=== PATIENT | female | born 1990 | race Caucasian/White ===

== ENCOUNTER 2019-05-22 20:19 | Emergency (ER) | payer OTHER ==
[2019-05-22 20:26] VITALS: BP 121/77; PULSE 88; TEMP 98.3; BMI 37.4
--- NOTE | 2019-05-22 20:29 | PDOC ---
Rapid Medical Evaluation Time Seen by Provider: 05/22/19 20:23 Medical Evaluation: 05/22/19 20:26 I have performed a brief in-person evaluation of this patient. The patient presents with a chief complaint of: + test at home, unsure how far along she is, p/w abd pain w/ vag itching and swelling to feet Pertinent physical exam findings:Stable and well sathya I have ordered the following:labs/US The patient will proceed to the ED for further evaluation. Discharge Disposition - Diagnosis Abdominal cramping - Referrals - Patient Instructions - Post Discharge Activity
--- NOTE | 2019-05-22 21:03 | PDOC ---
History of Present Illness - General Chief Complaint: Pain Stated Complaint: VAGINAL PAIN/ Time Seen by Provider: 05/22/19 20:23 History Source: Patient Exam Limitations: No Limitations - History of Present Illness Initial Comments: 28 yo obese F w a hx of childhood asthma and severe pre-eclampsia in her last presents to the ER with groin pain saying she thinks she is around 10 weeks bc she took an at home test but came into the ER today because she started feeling some right sided lower abdominal pain that she has never felt before. The patient states she also thinks she has a urinary tract infection because it lucero alot when she pees. The pain feels like a stabbing and squeezing in character and is rated 8/10 when it comes on. The pain is sometimes made worse when the patient moves from a sitting to standing position. The patient is not currently experiencing any pain. Occasionally she experiences nausea with the pain but denies emesis. The patient has not yet had an US to document an IUP for this bc she states her insurance doesn't schedule the first pre-dakota appointment until 10 weeks. She states she has been taking pre-dakota vitamins for the . Patient recently moved from [place] 2 months ago. - Patient endorses dysuria, frequency, and urgency. Patient takes 81 mg baby aspirin every day as recommended by her prior OB from [place] bc of her hx of severe pre-eclampsia. LMP: 03/27 PCP: None SECURITY ANALYST: None yet, getting a new one next week Social Hx: Denies current smoking, drinking, or other substance usage. Allergies: NKA, NKDA PSH: x2 Past History - Past Medical History Allergies/Adverse Reactions: Allergies Allergy/AdvReac Type Severity Reaction Status Date / Time No Known Allergies Allergy Verified 05/22/19 20:26 Home Medications: Ambulatory Orders Cephalexin Monohydrate [Keflex -] 500 mg PO BID 7 Days #14 capsule 05/22/19 Nystatin Cream [Mycostatin Cream -] 1 applic TP BID 7 Days #1 applic 05/22/19 COPD: No - Suicide/Smoking/Psychosocial Hx Smoking History: Never smoked Review of Systems - Review of Systems Able to Perform ROS?: Yes Comments:: CONSTITUTIONAL: Absent: fever, no chills, no fatigue EYES: Absent: visual changes ENT: Absent: ear pain, no sore throat CARDIOVASCULAR: Absent: chest pain, no palpitations RESPIRATORY: Absent: cough, no SOB GI: Present: Abdominal pain, nausea Absent: no vomiting, no constipation, no diarrhea GENITOURINARY: Present: dysuria, frequency, urgency Absent: no hematuria MUSKULOSKELETAL: Absent: back pain, no arthralgia, no myalgia SKIN: Absent: rash NEURO: Absent: headache *Physical Exam - Vital Signs Last Vital Signs Temp Pulse Resp BP Pulse Ox 98.3 F 88 18 121/77 98 05/22/19 20:24 05/22/19 20:24 05/22/19 20:24 05/22/19 20:24 05/22/19 20:24 - Physical Exam Comments: GENERAL: Well-appearing, well-nourished. No apparent distress. HEENT: Normocephalic, atraumatic. PERRL, EOM intact. CARDIOVASCULAR: Normal S1, S2. Regular rate and rhythm. PULMONARY: No evidence of respiratory distress. Lungs clear to auscultation bilaterally. No wheezing, rales or rhonchi. ABDOMEN: There is Suprapubic TTP as well as mild RLQ ttp. No guarding, rigidity, or rebound. EXTREMITIES: Normal ROM in all four extremities. No gross deformities. SKIN: Warm, dry. No rash NEUROLOGICAL: No focal neurological deficits. Female Pelvic Exam: positive: normal external exam, cervical os closed, normal adnexa, normal size ovaries, discharge (Whitish curd like lesions). negative: CMT, lesions, Bartholin mass, adnexal tenderness, vaginal bleeding ED Treatment Course - LABORATORY CBC & Chemistry Diagram: 05/22/19 20:58 05/22/19 20:58 Medical Decision Making - Medical Decision Making 28 yo obese F w a hx of childhood asthma and severe pre-eclampsia in her last presents to the ER with groin pain saying she thinks she is around 10 weeks bc she took an at home test but came into the ER today because she started feeling some right sided lower abdominal pain that she has never felt before. The patient states she also thinks she has a urinary tract infection because it lucero alot when she pees. The pain feels like a stabbing and squeezing in character and is rated 8/10 when it comes on. The pain is sometimes made worse when the patient moves from a sitting to standing position. The patient is not currently experiencing any pain. Occasionally she experiences nausea with the pain but denies emesis. The patient has not yet had an US to document an IUP for this bc she states her insurance doesn't schedule the first pre- appointment until 10 weeks. She states she has been taking pre-dakota vitamins for the . Patient recently moved from [place] 2 months ago. - Patient endorses dysuria, frequency, and urgency. Patient takes 81 mg baby aspirin every day as recommended by her prior OB from [place] bc of her hx of severe pre-eclampsia. LMP: 03/27 Vital Signs Temp Pulse Resp BP Pulse Ox 98.3 F 88 18 121/77 98 05/22/19 20:24 05/22/19 20:24 05/22/19 20:24 05/22/19 20:24 05/22/19 20:24 DDx IBNLT: - IUP vs ectopic, UTI/Pyelo, torsion, ovarian cyst, - inevitable vs threatened, electrolyte/metabolic disturbance Plan: Labs, urine, TVUS, re-assess. Urine shows mild UTI Pelvic exam shows candidal discharge TVUS: IUP, FHR - 161, approximately 7 weeks 2 days by CRL of 1.14 and a mean gestational sac diameter of 2.39 Will treat uti with keflex and nystatin cream Patient being given OB follow up *DC/Admit/Observation/Transfer Diagnosis at time of Disposition: Abdominal cramping, UTI (urinary tract infection), Ginette cystitis - Discharge Dispostion Disposition: HOME Condition at time of disposition: Stable Decision to Admit order: No - Prescriptions Prescriptions: Cephalexin Monohydrate [Keflex -] 500 mg PO BID 7 Days #14 capsule Nystatin Cream [Mycostatin Cream -] 1 applic TP BID 7 Days #1 applic - Referrals Referrals: [facility] [Provider Group] Ann Moser MD [Staff Physician] - - Patient Instructions Printed Discharge Instructions: Weight Gain During Additional Instructions: You came into the ER with abdominal pain and burning when you pee. We looked at your urine and found that you have a urinary tract infection. We have sent two medications to your pharmacy for you to go and pic up. Please take as instructed on the bottles. Please make sure to follow up with an OB doctor this week regarding your results. Come back to the ER immediately if your pain worsens, you get a fever, start vomiting, or have any other new or worsening concerns. Thank you for coming to the [facility]. We hope you feel better soon! Print Language: CITIZEN OF [place] - Post Discharge Activity
[2019-05-22 21:04] LABS: BASO % 0.9 % (0-2.0); EOS % 1.9 % (0-4.5); HEMATOCRIT 40.9 % (32.4-45.2); HEMOGLOBIN 13.4 GM/dL (10.7-15.3); LYMPH % 28.3 % (8-40); MCH 27.3 pg (25.7-33.7); MCHC 32.7 g/dl (32.0-36.0); MEAN CELL VOLUME 83.3 fl (80-96); MEAN PLT VOLUME 8.6 fl (7.5-11.1); MONO % 5.6 % (3.8-10.2); NEUT % 63.3 % (42.8-82.8); PLATELET COUNT 262 K/MM3 (134-434); RBC 4.91 M/mm3 (3.60-5.2); WHITE BLOOD COUNT 11.7 K/mm3 (4.0-10.0)
[2019-05-22 21:16] LABS: INR 0.95 (0.83-1.09); PROTHROMBIN TIME (PATIENT) 11.2 SEC (9.7-13.0)
--- NOTE | 2019-05-22 21:23 | PDOC ---
Attending Attestation - Resident Resident Name: Jelly Kayian - ED Attending Attestation I have performed the following: I have examined & evaluated the patient, The case was reviewed & discussed with the resident, I agree w/resident's findings & plan - HPI HPI: 05/22/19 21:22 28 yo obese F w a hx of childhood asthma and severe pre-eclampsia in her last presents to the ER with groin pain saying she thinks she is around 10 weeks bc she took an at home test but came into the ER today because she started feeling some right sided lower abdominal pain that she has never felt before. she also endorses UTI sx, +dysuria, frequency and urgency. +vaginal itching and discharge Occasionally she experiences nausea with the cramping abdominal pain but denies vomiting. The patient has not yet had an US to document an IUP for this bc she states her insurance doesn't schedule the first pre-dakota appointment until 10 weeks. She states she has been taking pre- vitamins for the . she has upcoming appt with OB for establishment of care on 06/08/19. no vaginal bleeding LMP 03/23/19 prior C sections; no miscarriages. 05/23/19 00:21 - Physicial Exam PE: 05/22/19 22:59 Agree with the resident's HPI and PE as documented in the electronic medical record. NAD, well appearing, EOMI, PERRL, MMM, nl conjunctiva, anicteric; neck supple. lungs clear, RRR, abdomen soft nontender. Back nontender. GUILLERMO x4, no focal neuro deficits. No peripheral edema. normal color for ethnicity, WWP. pelvic exam by resident, see documentation; notable for vaginal discharge, appearing like candidiasis 05/23/19 00:21 - Medical Decision Making 05/22/19 22:59 hpi as documented VS reviewed, wnl no VB. +urinary sx primarily. no documented IUP RME initated orders labs unremarkable, normal Cr. nonspecific wbc ct 2/2 . UA with WBCs 6, some bacteria, will treat as UTI in - keflex BID x 1 week Live IUP documented, with FHR 161 bpm. pelvic exam with candidiasis, topical nystatin cream treatment, hygiene encouraged OB followup, DC in stable condition, return precautions including worsening pain , f/c, infection, VB. 05/22/19 23:06 05/23/19 00:22
[2019-05-22 21:42] LABS: ALBUMIN 3.6 g/dl (3.4-5.0); BILIRUBIN,TOTAL 0.2 mg/dL (0.2-1); CALCIUM 9.1 mg/dL (8.5-10.1); CREATININE 0.7 mg/dL (0.55-1.3); POTASSIUM 3.9 mmol/L (3.5-5.1); TOT PROT 7.1 g/dl (6.4-8.2)
[2019-05-22 21:47] LABS: EPI CELLS 2.3 /HPF (0-5/HPF); HYALINE CASTS 2 /lpf (0-8); PH,URINE 5.5 (5.0-8.0); URINE APPEARANCE CLEAR; URINE BACTERIA 613.7 /hpf (NEGATIVE); URINE BILIRUBIN NEGATIVE (NEGATIVE); URINE COLOR YELLOW; URINE GLUCOSE (UA) NEGATIVE (NEGATIVE); URINE KETONE NEGATIVE (NEGATIVE); URINE LEUK ESTERASE TRACE (NEGATIVE); URINE NITRITE NEGATIVE (NEGATIVE); URINE PROTEIN NEGATIVE (NEGATIVE); URINE RBC 1 /hpf (0-4); URINE UROBILINOGEN 0.2 mg/dL (0.2-1.0); URINE WBC 6 /hpf (0-5)
[2019-05-23 02:12] LABS: HCG,QUALITATIVE URINE Positive
== END 2019-05-23 00:21 | disposition home or self-care (01) ==
LOC: JER 20:19
DX: O26.891 Other specified pregnancy related conditions, first trimester (principal); B37.41 Candidal cystitis and urethritis; Z3A.01 Less than 8 weeks gestation of pregnancy
CPT/HCPCS: 36415; 76817-TC; 80053; 81003; 84702; 84703; 85025; 85610; 86850; 86900; 86901; 87086; 87186; 99283-25

== ENCOUNTER 2019-07-01 15:40 | Observation (INO) | payer OTHER ==
--- NOTE | 2019-07-01 15:50 | PDOC ---
Rapid Medical Evaluation Medical Evaluation: Allergies Allergy/AdvReac Type Severity Reaction Status Date / Time No Known Allergies Allergy Verified 06/23/19 00:35 07/01/19 15:47 I have performed a brief in-person evaluation of this patient. The patient presents with a chief complaint of: Abd pain w/ vag bleed. Pt , s/p d/c for spon Ab (@ 13 weeks) 4 days ago at [facility]. States she delivered placenta at home after D&C and still bleeding a/ abd pain. Saw Dr Hernandez today and sent to ED. No dysuria, n/v/f/c Pertinent physical exam findings:stable I have ordered the following:labs The patient will proceed to the ED for further evaluation. Discharge Disposition - Diagnosis Vaginal bleeding - Referrals - Patient Instructions - Post Discharge Activity
[2019-07-01 15:51] VITALS: BMI 37.4
[2019-07-01] MEDS ORDERED: LACTATED RINGERS SOLUTION 1,000 ML/1,000 ML INFUS.BAG IV SCH (16:45)
--- NOTE | 2019-07-01 16:52 | HP ---
Admitting History and Physical - Admission Chief Complaint: s/p miscarriage at home with D&C at another facility, with retained POC History of Present Illness: 28 y/o female who would be approximately 13 weeks gestation who states she had miscarriage at home over weekend. She went to [facility] Saturday and and had D&C and when she went home, states she delivered the placenta at home. She is not currently bleeding any longer but still has cramps/pain. History Source: Patient, Medical Record - Past Medical History Cardiovascular: Yes: HTN (h/o pre Eclampsia with prior ) Pulmonary: No: Asthma, COPD Gastrointestinal: No: GERD Hepatobiliary: No: Hepatitis B, Hepatitis C Renal/: No: UTI ...: No ...: 4 ...Para: 2 Infectious Disease: No: MRSA, STD's Psych: No: Anxiety, Bipolar, Depression - Past Surgical History Past Surgical History: Yes: - Smoking History Smoking history: Never smoked Have you smoked in the past 12 months: No - Alcohol/Substance Use Hx Alcohol Use: No - Social History Usual Living Arrangement: Yes: With Spouse ADL: Independent History of Recent Travel: No Home Medications - Allergies Allergies/Adverse Reactions: Allergies Allergy/AdvReac Type Severity Reaction Status Date / Time No Known Allergies Allergy Verified 06/23/19 00:35 - Home Medications Home Medications: Ambulatory Orders Cephalexin Monohydrate [Keflex -] 500 mg PO BID 7 Days #14 capsule 05/22/19 Nystatin Cream [Mycostatin Cream -] 1 applic TP BID 7 Days #1 applic 05/22/19 Review of Systems - Review of Systems Constitutional: reports: No Symptoms Eyes: reports: No Symptoms HENT: reports: No Symptoms Cardiovascular: reports: No Symptoms Respiratory: reports: No Symptoms Gastrointestinal: reports: No Symptoms Genitourinary: reports: Vaginal Bleeding, Other (pelvic and back pain) Musculoskeletal: reports: No Symptoms Integumentary: reports: No Symptoms Neurological: reports: No Symptoms Endocrine: reports: No Symptoms Hematology/Lymphatic: reports: No Symptoms Psychiatric: reports: No Symptoms Physical Examination Vital Signs: Vital Signs Temperature 97.9 F 07/01/19 15:48 Pulse Rate 87 07/01/19 15:48 Respiratory Rate 18 07/01/19 15:48 Blood Pressure 109/72 07/01/19 15:48 O2 Sat by Pulse Oximetry (%) 99 07/01/19 15:48 Constitutional: Yes: Well Nourished, No Distress, Calm Eyes: Yes: Conjunctiva Clear, EOM Intact HENT: Yes: Atraumatic Neck: Yes: Supple Cardiovascular: Yes: Regular Rate and Rhythm Respiratory: Yes: Regular, CTA Bilaterally Gastrointestinal: Yes: Normal Bowel Sounds, Soft, Abdomen, Obese Renal/: Yes: Vaginal Bleeding Psychiatric: Yes: Alert, Oriented Imaging - Results Ultrasound: Report Reviewed Problem List - Problems (1) Retained products of conception Code(s): [id number] - Assessment/Plan 28 y/o s/p spontaneous Ab at home and subsequent D&C, with retained products NPO for D&C anesthesia/OR aware need to wait 6 hours after eating per anesthesia - would be 6pm
[2019-07-01] MEDS ORDERED: ACETAMINOPHEN 1000 MG/100 ML VIAL (NON FORMULARY) IVPB ONE (17:00)
--- NOTE | 2019-07-01 17:05 | PDOC ---
History of Present Illness <Conchita Fonseca - Last Filed: 07/01/19 17:07> - General History Source: Patient Exam Limitations: No Limitations - History of Present Illness Initial Comments: 07/01/19 17:01 HISTORY OF PRESENT ILLNESS: 28-year-old woman who is one week status post D&C at another hospital who was sent to the emergency department by her CLERICAL COORDINATOR for retained products of conception. Patient was seen in Dr. Talley's office earlier today he was determined to have retained products of conception. Patient reports having lower abdominal and back pain denies any vaginal discharge or bleeding. Patient reports after having her D&C she delivered tissue which she believed was the placenta at home. This is what caused her to seek care with her biology teacher today. Patient denies fevers, chills, dysuria, hematuria, rectal bleeding constipation. No recent travel or sick contacts. PAST MEDICAL HISTORY: Denies past medical history SURGICAL HISTORY: see HPI ALLERGIES: No known drug allergies REVIEW OF SYSTEMS General/Constitutional: Denies fever or chills. Denies weakness, weight change. HEENT: Denies change in vision. Denies ear pain or discharge. Denies sore throat. Cardiovascular: Denies chest pain or shortness of breath. Respiratory: Denies cough, wheezing, or hemoptysis. Gastrointestinal: Denies nausea, vomiting, diarrhea or constipation. Denies rectal bleeding. Genitourinary: see HPI Musculoskeletal: Denies joint or muscle swelling or pain. Denies neck or back pain. Skin and breasts: Denies rash or easy bruising. Neurologic: Denies headache, vertigo, loss of consciousness, or loss of sensation. Psychiatric: Denies depression or anxiety. Endocrine: Denies increased thirst. Denies abnormal weight change. Hematologic/Lymphatic: Denies anemia, easy bleeding, or history of blood clots. Allergic/Immunologic: Denies hives or skin allergy. Denies latex allergy. PHYSICAL EXAM General Appearance: Well-appearing, appropriately dressed. No apparent distress , no intoxication. Respiratory/Chest: Lungs CTAB. No shortness of breath, chest tenderness, respiratory distress, accessory muscle use. No crackles, rales, rhonchi, stridor , wheezing, dullness Cardiovascular: RRR. S1, S2. No JVD, murmur, bradycardia, tachycardia. Vascular Pulses: Dorsalis-Pedis (R): 2+, Dorsalis-Pedis (L): 2+ Gastrointestinal/Abdominal: Normal bowel sounds. Abdomen soft, non-distended. No tenderness or rebound tenderness. No organomegaly, pulsatile mass, guarding, hernia, hepatomegaly, splenomegaly. Neurologic: managing jeweler II-XII intact. Fully oriented, alert. Appropriate mood/affect. Motor strength 5/5. No appreciable EOM palsy, facial droop or sensory deficit. <Castro Rosario - Last Filed: 07/02/19 01:40> - General Chief Complaint: ,Possible Stated Complaint: MISCARRIAGE / CLEANING Time Seen by Provider: 07/01/19 15:47 Past History <Conchita Fonseca - Last Filed: 07/01/19 17:07> - Past Medical History COPD: No - Reproductive History Is Patient Now?: No - Immunization History Immunization Up to Date: No - Suicide/Smoking/Psychosocial Hx Smoking History: Never smoked Have you smoked in the past 12 months: No Information on smoking cessation initiated: No Hx Alcohol Use: No Drug/Substance Use Hx: No <Castro Rosario - Last Filed: 07/02/19 01:40> - Past Medical History Allergies/Adverse Reactions: Allergies Allergy/AdvReac Type Severity Reaction Status Date / Time No Known Allergies Allergy Verified 06/23/19 00:35 Home Medications: Ambulatory Orders Doxycycline Hyclate 100 mg PO BID #14 capsule 07/01/19 Ibuprofen [Motrin -] 600 mg PO QID PRN #28 tablet 07/01/19 *Physical Exam - Vital Signs Last Vital Signs Temp Pulse Resp BP Pulse Ox 97.9 F 87 18 109/72 99 07/01/19 15:48 07/01/19 15:48 07/01/19 15:48 07/01/19 15:48 07/01/19 15:48 <Conchita Fonseca - Last Filed: 07/01/19 17:07> - Vital Signs Last Vital Signs Temp Pulse Resp BP Pulse Ox 97.9 F 87 18 109/72 99 07/01/19 15:48 07/01/19 15:48 07/01/19 15:48 07/01/19 15:48 07/01/19 15:48 <Castro Rosario - Last Filed: 07/02/19 01:40> ED Treatment Course - LABORATORY CBC & Chemistry Diagram: 07/01/19 16:35 07/01/19 16:35 <Conchita Fonseca - Last Filed: 07/01/19 17:07> - LABORATORY CBC & Chemistry Diagram: 07/01/19 16:35 07/01/19 16:35 <Castro Rosario - Last Filed: 07/02/19 01:40> Medical Decision Making - Medical Decision Making The patient was seen and evaluated in conjunction with midlevel provider under my direct supervision, ancillary studies were reviewed. I agree with the plan as outlined SHANE Rosario. HPI, workup/dispo as outlined. VS reviewed, wnl. admitting for retained POC, Dr Hernandez 07/01/19 17:08 <Conchita Fonseca - Last Filed: 07/01/19 17:07> - Medical Decision Making 07/01/19 17:04 A/P: 28-year-old woman sent by biology teacher for D&C Case is been discussed with Dr. Hernandez who is requesting preop labs be performed and patient remains nothing by mouth. Labs, urine, nothing by mouth, LR 100 mL/hour, IV Tylenol Admit <Castro Rosario - Last Filed: 07/02/19 01:40> *DC/Admit/Observation/Transfer <Conchita Fonseca - Last Filed: 07/01/19 17:07> - Discharge Dispostion Decision to Admit order: Yes <Castro Rosario - Last Filed: 07/02/19 01:40> Diagnosis at time of Disposition: Retained products of conception - Discharge Dispostion Disposition: HOME Condition at time of disposition: Good
[2019-07-01 17:16] LABS: INR 0.97 (0.83-1.09); PROTHROMBIN TIME (PATIENT) 11.5 SEC (9.7-13.0)
[2019-07-01 17:22] LABS: ALBUMIN 3.7 g/dl (3.4-5.0); BILIRUBIN,TOTAL 0.1 mg/dL (0.2-1); BLOOD UREA NITROGEN 8.3 mg/dL (7-18); CALCIUM 10.2 mg/dL (8.5-10.1); CREATININE 0.6 mg/dL (0.55-1.3); POTASSIUM 4.2 mmol/L (3.5-5.1); TOT PROT 7.3 g/dl (6.4-8.2)
[2019-07-01] MEDS ORDERED: ACETAMINOPHEN INJECTION 100 ML IVPB ONE (17:30)
[2019-07-01] MEDS ORDERED: PROPOFOL 20 ML ONE ×2 (17:50→19:03)
[2019-07-01] MEDS ORDERED: MIDAZOLAM HCL 2 MG/2 ML SINGLE DOSE VIAL ONE ×2 (17:50→18:46)
[2019-07-01 17:56] LABS: BASO % 0.6 % (0-2.0); EOS % 2.6 % (0-4.5); HEMATOCRIT 42.2 % (32.4-45.2); HEMOGLOBIN 13.7 GM/dL (10.7-15.3); LYMPH % 28.8 % (8-40); MCH 27.1 pg (25.7-33.7); MCHC 32.3 g/dl (32.0-36.0); MEAN CELL VOLUME 83.9 fl (80-96); MEAN PLT VOLUME 9.1 fl (7.5-11.1); MONO % 6.9 % (3.8-10.2); NEUT % 61.1 % (42.8-82.8); PLATELET COUNT 292 K/MM3 (134-434); RBC 5.04 M/mm3 (3.60-5.2); RDW 13.8 % (11.6-15.6); WHITE BLOOD COUNT 11.5 K/mm3 (4.0-10.0)
[2019-07-01] MEDS ORDERED: IBUPROFEN 600 MG TABLET (FP) PO PRN (18:31)
[2019-07-01] MEDS ORDERED: ACETAMINOPHEN 325 MG TABLET (FP) PO PRN (18:31)
[2019-07-01] MEDS ORDERED: KETOROLAC TROMETHAMINE 30 MG/1 ML VIAL ONE (18:34)
[2019-07-01] MEDS ORDERED: DEXAMETHASONE SOD PHOSPHATE 4 MG/1 ML VIAL ONE (18:34)
[2019-07-01 19:57] LABS: PH,URINE 6.5 (5.0-8.0); URINE APPEARANCE CLEAR; URINE BILIRUBIN NEGATIVE (NEGATIVE); URINE COLOR YELLOW; URINE GLUCOSE (UA) NEGATIVE (NEGATIVE); URINE KETONE NEGATIVE (NEGATIVE); URINE LEUK ESTERASE NEGATIVE (NEGATIVE); URINE NITRITE NEGATIVE (NEGATIVE); URINE PROTEIN NEGATIVE (NEGATIVE); URINE UROBILINOGEN 0.2 mg/dL (0.2-1.0)
[2019-07-01 20:22] VITALS: BP 111/60; PULSE 69; TEMP 98.1
--- NOTE | 2019-07-01 21:03 | OP ---
Operative Note - Note: Operative Date: 07/01/19 Pre-Operative Diagnosis: retained POC Operation: suction d&c Post-Operative Diagnosis: Same as Pre-op Surgeon: Radha Hernandez Anesthesiologist/EDITOR NEWS: Chris Fenton Anesthesia: MOO Specimens Removed: products of conception Estimated Blood Loss (mls): 5 Operative Report Dictated: Yes
--- NOTE | 2019-07-05 18:28 | OP ---
DATE OF OPERATION: 07/01/2019 PREOPERATIVE DIAGNOSIS: Retained products of conception. POSTOPERATIVE DIAGNOSIS: Retained products of conception. PROCEDURE: Suction dilation and curettage. SURGEON: Radha Hernandez MD ANESTHESIA: MAC by Dr. Severo Fenton MD ESTIMATED BLOOD LOSS: 5 mL. SPECIMENS: Products of conception. COMPLICATIONS: None. COUNTS: Sponge, needle and instrument count correct at the end of the case. BRIEF HISTORY AND PROCEDURE: The patient is a 28-year-old female who had been seen at an outside facility after having an incomplete miscarriage at home. She had a D&C at that facility on June 28. She presented to the office on the with complaints of severe pain and continued bleeding. She had an ultrasound which showed retained products of conception. She was then taken to the preoperative area for admission. Consents for suction D&C were signed. She was then taken to the operating room, placed in the dorsal lithotomy position, and given MAC anesthesia. Her vagina was prepped with Betadine. A hard timeout was performed. A speculum was placed inside the vagina. The anterior lip of the cervix was visualized and grasped with a tenaculum. The cervix was dilated to accommodate a size 7 suction curette, which was advanced to the fundus of the uterus, which was noted to be very retroverted. Multiple passes with the suction curette as well as sharp curette were performed until what appeared to be all the remaining residual tissue and products of conception had been removed. All instruments were then removed from the vagina. The patient was awoken from anesthesia and minimal bleeding was noted from the cervix and tenaculum sites. Specimens were sent to Pathology. She was recovering in stable condition in PACU after the procedure. RADHA HERNANDEZ DO /[id number]
--- NOTE | 2019-07-06 16:31 | PATH ---
Surgical Pathology Report Patient Name: JOAQUIN MCKEON Med. Rec. #: [id number] /Age/Gender: 1990 (Age: 28) / F Account: [id number] Location: [address] [place] [address] Taken: 07/01/2019 Received: 07/02/2019 Reported: 07/06/2019 Physicians: Radha Hernandez M.D. Specimen(s) Received CONTENTS OF UTERUS Clinical History Retained products of conception Final Diagnosis CONTENTS OF UTERUS, SUCTION DILATION AND CURETTAGE: NO CHORIONIC VILLI PRESENT. DECIDUAL TISSUE ADMIXED WITH ACUTE INFLAMMATORY AND FIBRINOUS EXUDATE. SEPARATE SECRETORY TYPE ENDOMETRIUM. SEPARATE FRAGMENTS OF ENDOCERVICAL TISSUE WITH NO SIGNIFICANT PATHOLOGIC CHANGE. Electronically Signed Kandice Davis M.D. Gross Description Received in formalin labeled "contents of uterus," is a 4.0 x 3.0 x 0.4 cm aggregate of samuels soft tissue fragments. No definitive villus tissue or somatic tissue is identified. The formalin is filtered and the specimen is entirely submitted in 3 cassettes. /07/02/2019 [facility]07/02/2019
== END 2019-07-01 21:03 | disposition home or self-care (01) ==
LOC: JER 15:40 → JERBED 17:05 → J6S 20:10
PROVIDERS: ADMIT Obstetrics & Gynecology; ATTEND Obstetrics & Gynecology
PROC: 10D17ZZ Extraction of Products of Conception, Retained, Via Natural or Artificial Opening (ICD-10-PCS; principal; 2019-07-01 19:00)
DX: O03.4 Incomplete spontaneous abortion without complication (principal)
CPT/HCPCS: 36415; 80053; 81003; 84702; 85025; 85610; 86850; 86900; 86901; 94760; 99285-25; G0378; J0131

== ENCOUNTER 2021-03-02 06:30 | Inpatient (IN) | payer OTHER ==
[2021-03-02] MEDS: ELECTROLYTE-148 SOLN 1,000 ML IV SCH (07:15)
[2021-03-02] MEDS ORDERED: ACETAMINOPHEN 325 MG TABLET (FP) PO PRN (07:36)
[2021-03-02] MEDS ORDERED: IBUPROFEN 400 MG TABLET (FP) PO PRN (07:36)
[2021-03-02] MEDS ORDERED: ePHEDrine SULFATE 50 MG/1 ML AMPULE ONE ×2 (07:44→09:05)
[2021-03-02] MEDS ORDERED: SUCCINYLCHOLINE CHLORIDE 200 MG/10 ML SYRINGE ONE (07:45)
[2021-03-02] MEDS ORDERED: PROPOFOL 20 ML ONE ×4 (07:45→17:55)
[2021-03-02] MEDS ORDERED: ceFAZolin SODIUM 1 GM VIAL ONE (07:46)
[2021-03-02] MEDS ORDERED: OXYTOCIN 10 UNITS/ML VIAL ONE (07:46)
[2021-03-02 07:55] VITALS: BMI 30.5
[2021-03-02] MEDS ORDERED: KETOROLAC TROMETHAMINE 30 MG/1 ML VIAL ONE (08:13)
[2021-03-02] MEDS ORDERED: LIGASURE IMPACT TP ONE (08:28)
[2021-03-02] MEDS ORDERED: CITRIC ACID/SODIUM CITRATE 30 ML UNIT-DOSE CUP PO ONE (08:33)
[2021-03-02] MEDS ORDERED: WITCH HAZEL 50% (TUCKS) 40 PAD/JAR PAD TP PRN (08:34)
[2021-03-02] MEDS ORDERED: METHYLERGONOVINE MALEATE 0.2 MG/1 ML AMP IM PRN (08:34)
[2021-03-02] MEDS ORDERED: BENZOCAINE 28 GM HEMORRHOIDAL OINTMENT RC PRN (08:34)
[2021-03-02] MEDS ORDERED: BENZOCAINE 20% 57 GM BOTTLE TP PRN (08:34)
[2021-03-02 09:39] LABS: CORD BASE EXCESS 0.3 mmol/L (0-2); CORD HCO3 26.2 mmHg (20-29); CORD PCO2 46.9 mmHg (30-78); CORD pH 7.365 (7.14-7.44)
[2021-03-02] MEDS ORDERED: OXYTOCIN 20 UNITS in 0.9% NS 20 UNIT/1,000 ML INFUS.BAG IV SCH (09:45)
[2021-03-02] MEDS ORDERED: ONDANSETRON 4 MG/2 ML VIAL IVPUSH PRN (10:37)
[2021-03-02] MEDS ORDERED: IBUPROFEN 800 MG/8 ML IJ IVPB ONE (10:48)
[2021-03-02] MEDS ORDERED: diphenhydrAMINE HCL 25 MG CAPSULE (FP) PO ONE (10:57)
[2021-03-02] MEDS: diphenhydrAMINE HCL 25 MG CAPSULE (FP) PO PRN (11:06)
[2021-03-02] MEDS: IBUPROFEN 800 MG/8 ML IJ IVPB PRN ×2 (11:07→20:34)
[2021-03-02] MEDS ORDERED: OXYTOCIN 20 UNITS in 0.9% NS 20 UNIT/1,000 ML INFUS.BAG IV ONE (14:02)
[2021-03-02] MEDS ORDERED: ACETAMINOPHEN 325 MG TABLET (FP) ONE ×2 (15:02→15:04)
[2021-03-02] MEDS: ACETAMINOPHEN 500 MG TABLET (FP) PO PRN (15:04)
[2021-03-02] MEDS ORDERED: EPHEDRINE SULFATE/0.9% NACL/PF 50 MG/10 ML SYRINGE NR ONE (17:51)
[2021-03-03] MEDS: IBUPROFEN 600 MG TABLET (FP) PO PRN ×3 (02:18→20:54)
[2021-03-03] MEDS: ACETAMINOPHEN 325 MG TABLET (FP) PO PRN ×3 (02:19→20:53)
[2021-03-03] MEDS: diphenhydrAMINE HCL 25 MG CAPSULE (FP) PO PRN (02:19)
[2021-03-03] MEDS: SIMETHICONE 80 MG TAB.CHEW (FP) PO PRN ×3 (02:19→20:55)
[2021-03-03 08:24] LABS: BASO % 0.4 % (0-2.0); HEMATOCRIT 31.5 % (32.4-45.2); HEMOGLOBIN 10.7 GM/dL (10.7-15.3); LYMPH % 21.9 % (8-40); MEAN CELL VOLUME 85.3 fl (80-96); MEAN PLT VOLUME 9.6 fl (7.5-11.1); NEUT % 67.7 % (42.8-82.8); PLATELET COUNT 156 K/MM3 (134-434); RBC 3.69 M/mm3 (3.60-5.2); RDW 13.2 % (11.6-15.6); WHITE BLOOD COUNT 9.1 K/mm3 (4.0-10.0)
[2021-03-03] MEDS ORDERED: oxyCODONE HCL 5 MG TABLET PO PRN (08:34)
[2021-03-03] MEDS ORDERED: BISACODYL 10 MG SUPP.RECT PR PRN (08:34)
[2021-03-03] MEDS: ACETAMINOPHEN 500 MG TABLET (FP) PO PRN (14:56)
[2021-03-03] MEDS ORDERED: BISACODYL 10 MG SUPP.RECT PR ONE (22:48)
[2021-03-04] MEDS: ACETAMINOPHEN 325 MG TABLET (FP) PO PRN ×3 (07:31→21:03)
[2021-03-04] MEDS: IBUPROFEN 600 MG TABLET (FP) PO PRN ×3 (07:31→21:02)
[2021-03-04] MEDS: DOCUSATE SODIUM 100 MG CAPSULE (FP) PO PRN ×2 (16:50→21:02)
[2021-03-04] MEDS: PRENATAL VITAMINS W/ FOLIC ACID TABLET (FP) PO SCH (16:52)
[2021-03-04] MEDS ORDERED: SENNOSIDES/DOCUSATE COMBO (SENNA PLUS) TABLET (UD) PO PRN (22:00)
[2021-03-05] MEDS: ACETAMINOPHEN 325 MG TABLET (FP) PO PRN (09:23)
[2021-03-05] MEDS: PRENATAL VITAMINS W/ FOLIC ACID TABLET (FP) PO SCH (09:23)
[2021-03-05] MEDS: DOCUSATE SODIUM 100 MG CAPSULE (FP) PO PRN (09:23)
[2021-03-05] MEDS: SIMETHICONE 80 MG TAB.CHEW (FP) PO PRN (09:24)
[2021-03-05] MEDS: IBUPROFEN 600 MG TABLET (FP) PO PRN (09:24)
[2021-03-05] MEDS: ELECTROLYTE-148 SOLN 1,000 ML IV SCH (09:25)
[2021-03-05 10:06] LABS: HEMATOCRIT 35.4 % (32.4-45.2); HEMOGLOBIN 11.9 GM/dL (10.7-15.3); MCH 28.9 pg (25.7-33.7); MCHC 33.6 g/dl (32.0-36.0); MEAN CELL VOLUME 86.1 fl (80-96); MEAN PLT VOLUME 9.9 fl (7.5-11.1); PLATELET COUNT 207 K/MM3 (134-434); RBC 4.11 M/mm3 (3.60-5.2); RDW 13.5 % (11.6-15.6); WHITE BLOOD COUNT 7.6 K/mm3 (4.0-10.0)
[2021-03-05 10:26] VITALS: BP 103/69; PULSE 70; TEMP 98
== END 2021-03-05 13:25 | disposition home or self-care (01) | DRG 540 ==
LOC: JLDR 06:30 → J3W 15:19
PROVIDERS: ADMIT Obstetrics & Gynecology; ATTEND Obstetrics & Gynecology
PROC: 10D00Z1 Extraction of Products of Conception, Low, Open Approach (ICD-10-PCS; principal; 2021-03-02)
PROC: 0UT70ZZ Resection of Bilateral Fallopian Tubes, Open Approach (ICD-10-PCS; 2021-03-02)
DX: O34.219 Maternal care for unspecified type scar from previous cesarean delivery (principal); O32.1XX0 Maternal care for breech presentation, not applicable or unspecified; O36.5930 Maternal care for other known or suspected poor fetal growth, third trimester, not applicable or unspecified; O69.81X0 Labor and delivery complicated by cord around neck, without compression, not applicable or unspecified; O99.214 Obesity complicating childbirth; E66.9 Obesity, unspecified; Z30.2 Encounter for sterilization; Z3A.37 37 weeks gestation of pregnancy; Z37.0 Single live birth; Z86.73 Personal history of transient ischemic attack (TIA), and cerebral infarction without residual deficits; Z98.890 Other specified postprocedural states
CPT/HCPCS: 36415; 36600; 82803; 85025; 85027; 88302-TC; 88307-TC

== ENCOUNTER 2021-03-09 18:40 | Emergency (ER) | payer OTHER ==
[2021-03-09 18:53] VITALS: BMI 28.6
[2021-03-09] MEDS ORDERED: FAMOTIDINE 20 MG/50 ML IVPB 20 MG/50 ML MG IVPB ONE ×2 (19:04→20:25)
[2021-03-09] MEDS ORDERED: LACTATED RINGERS SOLUTION 1000 ML INFUS.BAG IV ONE (19:04)
[2021-03-09] MEDS ORDERED: ONDANSETRON 4 MG/2 ML VIAL IVPUSH ONE (19:04)
[2021-03-09] MEDS ORDERED: ACETAMINOPHEN 1000 MG/100 ML VIAL (NON FORMULARY) IVPB ONE (19:04)
[2021-03-09] MEDS ORDERED: ONDANSETRON 4 MG/2 ML VIAL ONE (20:25)
[2021-03-09 20:48] LABS: BASO % 0.4 % (0-2.0); HEMATOCRIT 37.9 % (32.4-45.2); HEMOGLOBIN 12.5 GM/dL (10.7-15.3); LYMPH % 12.2 % (8-40); MCH 28.2 pg (25.7-33.7); MCHC 32.9 g/dl (32.0-36.0); MEAN CELL VOLUME 85.8 fl (80-96); MEAN PLT VOLUME 8.9 fl (7.5-11.1); MONO % 6.8 % (3.8-10.2); NEUT % 78.6 % (42.8-82.8); PLATELET COUNT 266 K/MM3 (134-434); RBC 4.42 M/mm3 (3.60-5.2); RDW 13.2 % (11.6-15.6); WHITE BLOOD COUNT 14.7 K/mm3 (4.0-10.0)
[2021-03-09 20:56] LABS: INR 0.85 (0.83-1.09); PROTHROMBIN TIME (PATIENT) 10.5 SEC (9.7-13.0)
[2021-03-09 20:58] LABS: ACTIVATED PTT 26.9 SECONDS (25.2-36.5)
[2021-03-09 20:59] LABS: POTASSIUM 3.9 mmol/L (3.5-5.1)
[2021-03-09 21:01] LABS: CALCIUM 9.3 mg/dL (8.5-10.1)
[2021-03-09 21:02] LABS: ALBUMIN 2.9 g/dl (3.4-5.0); BLOOD UREA NITROGEN 12.9 mg/dL (7-18); MAGNESIUM 2.2 mg/dL (1.8-2.4)
[2021-03-09 21:05] LABS: BILIRUBIN,TOTAL 0.5 mg/dL (0.2-1); CREATININE 0.5 mg/dL (0.55-1.3)
[2021-03-09 21:08] LABS: TOT PROT 6.2 g/dl (6.4-8.2)
[2021-03-09 21:19] LABS: URINE APPEARANCE CLOUDY; URINE BILIRUBIN NEGATIVE (NEGATIVE); URINE COLOR YELLOW; URINE GLUCOSE (UA) NEGATIVE (NEGATIVE); URINE KETONE NEGATIVE (NEGATIVE); URINE LEUK ESTERASE NEGATIVE (NEGATIVE); URINE NITRITE NEGATIVE (NEGATIVE); URINE PROTEIN NEGATIVE (NEGATIVE)
[2021-03-10 00:08] VITALS: BP 122/79; PULSE 61; TEMP 98.2
== END 2021-03-10 00:30 | disposition home or self-care (01) ==
LOC: JER 18:40
PROC: 3E033GC Introduction of Other Therapeutic Substance into Peripheral Vein, Percutaneous Approach (ICD-10-PCS; principal; 2021-03-09)
DX: R10.84 Generalized abdominal pain (principal); I71.2 Thoracic aortic aneurysm, without rupture
CPT/HCPCS: 36415; 71046-TC-FY; 71275-TC; 74177-TC; 76830-TC; 80053; 81003; 82550; 83605; 83690; 83735; 84484; 85025; 85610; 85730; 93005; 93010; 99285-25; J0131; Q9967

== ENCOUNTER 2022-04-10 12:37 | Emergency (ER) | payer OTHER ==
[2022-04-10 13:10] VITALS: BP 109/68; PULSE 115; TEMP 101.3; BMI 28.7
[2022-04-10] MEDS ORDERED: SODIUM CHLORIDE 0.9% 500 ML INFUS.BAG IV ONE (14:32)
[2022-04-10] MEDS ORDERED: FAMOTIDINE 20 MG/50 ML IVPB 20 MG/50 ML MG IVPB ONE (14:32)
[2022-04-10] MEDS ORDERED: ACETAMINOPHEN 1000 MG/100 ML BAG IVPB ONE (14:32)
[2022-04-10] MEDS ORDERED: ACETAMINOPHEN INJECTION 100 ML IVPB ONE (14:40)
[2022-04-10] MEDS ORDERED: FAMOTIDINE 10 MG/ML VIAL IVPB ONE (14:41)
[2022-04-10 14:50] LABS: BASO % 0.5 % (0-2.0); EOS % 0.1 % (0-4.5); HEMATOCRIT 38.4 % (32.4-45.2); HEMOGLOBIN 12.9 GM/dL (10.7-15.3); LYMPH % 12.3 % (8-40); MCH 27.8 pg (25.7-33.7); MCHC 33.6 g/dl (32.0-36.0); MEAN CELL VOLUME 82.9 fl (80-96); MONO % 10.6 % (3.8-10.2); NEUT % 76.5 % (42.8-82.8); PLATELET COUNT 189 10^3/uL (134-434); RBC 4.63 M/mm3 (3.60-5.2); RDW 13.5 % (11.6-15.6)
[2022-04-10 14:53] LABS: EPI CELLS 12 /uL (0-25.1); HYALINE CASTS 8 /uL (0-3.1); PH,URINE 5.5 (5.0-8.0); URINE APPEARANCE CLOUDY; URINE BACTERIA >9,000 /uL (0-1359); URINE BILIRUBIN NEGATIVE (NEGATIVE); URINE COLOR YELLOW; URINE GLUCOSE (UA) NEGATIVE (NEGATIVE); URINE KETONE 1+ (NEGATIVE); URINE LEUK ESTERASE 2+ (NEGATIVE); URINE NITRITE POSITIVE (NEGATIVE); URINE PROTEIN 1+ (NEGATIVE); URINE RBC 14 /uL (0-23.9); URINE UROBILINOGEN 0.2 mg/dL (0.2-1.0); URINE WBC 679 /uL (0-25.8)
[2022-04-10 15:01] LABS: INR 1.18 (0.83-1.09); PROTHROMBIN TIME (PATIENT) 13.6 SEC (9.7-13.0)
[2022-04-10 15:03] LABS: ACTIVATED PTT 25.6 SECONDS (25.2-36.5)
[2022-04-10 15:10] LABS: CALCIUM 9.2 mg/dL (8.5-10.1)
[2022-04-10 15:11] LABS: ALBUMIN 3.4 g/dl (3.4-5.0)
[2022-04-10 15:14] LABS: CREATININE 0.6 mg/dL (0.55-1.3)
[2022-04-10 15:15] LABS: BILIRUBIN,TOTAL 0.3 mg/dL (0.2-1); TOT PROT 7.4 g/dl (6.4-8.2)
[2022-04-10 15:31] LABS: BLOOD UREA NITROGEN 6.8 mg/dL (7-18)
[2022-04-10] MEDS ORDERED: CEFTRIAXONE 1 GM in DEXTROSE 5%-WATER - 100 ML IVPB ONE (15:35)
[2022-04-10] MEDS ORDERED: CEFTRIAXONE 1 GM/50 ML BAG ONE (16:17)
== END 2022-04-10 20:18 | disposition home or self-care (01) ==
LOC: JER 12:37
PROC: 3E033GC Introduction of Other Therapeutic Substance into Peripheral Vein, Percutaneous Approach (ICD-10-PCS; principal; 2022-04-10)
DX: N12 Tubulo-interstitial nephritis, not specified as acute or chronic (principal)
CPT/HCPCS: 36415; 74177-TC; 80053; 81003; 84703; 85025; 85610; 85730; 87040; 87086; 87186; 96365; 96375; 99285-25; Q9967

== ENCOUNTER 2022-05-16 22:37 | Emergency (ER) | payer OTHER ==
[2022-05-16 22:52] VITALS: TEMP 98.3; BMI 26.9
[2022-05-16] MEDS ORDERED: ACETAMINOPHEN 1000 MG/100 ML BAG IVPB ONE (23:34)
[2022-05-16] MEDS ORDERED: FAMOTIDINE 20 MG/50 ML IVPB 20 MG/50 ML MG IVPB ONE ×2 (23:34→23:52)
[2022-05-16] MEDS ORDERED: MAG HYDROX/AL HYDROX/SIMETH -MYLANTA- ORAL SUSPENSION PO ONE (23:34)
[2022-05-16] MEDS ORDERED: MAG HYDROX/AL HYDROX/SIMETH 30 ML UNIT-DOSE CUP ONE (23:52)
[2022-05-16] MEDS ORDERED: ACETAMINOPHEN INJECTION 100 ML IVPB ONE (23:52)
[2022-05-17 00:10] LABS: BASO % 0.7 % (0-2.0); EOS % 2.6 % (0-4.5); HEMATOCRIT 40.6 % (32.4-45.2); HEMOGLOBIN 13.3 GM/dL (10.7-15.3); LYMPH % 32.6 % (8-40); MCH 26.9 pg (25.7-33.7); MCHC 32.8 g/dl (32.0-36.0); MEAN CELL VOLUME 82.1 fl (80-96); MONO % 7.8 % (3.8-10.2); NEUT % 56.3 % (42.8-82.8); PLATELET COUNT 277 10^3/uL (134-434); RBC 4.95 M/mm3 (3.60-5.2); RDW 13.7 % (11.6-15.6); WHITE BLOOD COUNT 10.6 K/mm3 (4.0-10.0)
[2022-05-17 00:11] LABS: URINE APPEARANCE CLEAR; URINE BILIRUBIN NEGATIVE (NEGATIVE); URINE COLOR YELLOW; URINE GLUCOSE (UA) NEGATIVE (NEGATIVE); URINE KETONE NEGATIVE (NEGATIVE); URINE LEUK ESTERASE NEGATIVE (NEGATIVE); URINE NITRITE NEGATIVE (NEGATIVE); URINE PROTEIN NEGATIVE (NEGATIVE); URINE UROBILINOGEN 0.2 mg/dL (0.2-1.0)
[2022-05-17 00:31] LABS: CALCIUM 8.7 mg/dL (8.5-10.1)
[2022-05-17 00:32] LABS: ALBUMIN 3.4 g/dl (3.4-5.0)
[2022-05-17 00:35] LABS: CREATININE 0.8 mg/dL (0.55-1.3)
[2022-05-17 00:37] LABS: BILIRUBIN,TOTAL 0.1 mg/dL (0.2-1); TOT PROT 7.1 g/dl (6.4-8.2)
[2022-05-17 02:47] VITALS: BP 120/76; PULSE 88
== END 2022-05-17 02:47 | disposition home or self-care (01) ==
LOC: JER 22:37
PROC: 3E033GC Introduction of Other Therapeutic Substance into Peripheral Vein, Percutaneous Approach (ICD-10-PCS; principal; 2022-05-16)
DX: R10.11 Right upper quadrant pain (principal)
CPT/HCPCS: 36415; 76705-TC; 80053; 81003; 83690; 85025; 87086; 99284-25

== ENCOUNTER 2023-01-26 16:46 | Emergency (ER) | payer OTHER ==
[2023-01-26 16:59] VITALS: BP 93/66; RESP 18; TEMP 98.5; BMI 29.2
[2023-01-26 18:11] LABS: EPI CELLS >36 /uL (0-25.1); HYALINE CASTS 3 /uL (0-3.1); URINE APPEARANCE CLOUDY; URINE BACTERIA 273 /uL (0-1359); URINE BILIRUBIN NEGATIVE (NEGATIVE); URINE COLOR YELLOW; URINE GLUCOSE (UA) NEGATIVE (NEGATIVE); URINE KETONE TRACE (NEGATIVE); URINE LEUK ESTERASE NEGATIVE (NEGATIVE); URINE NITRITE NEGATIVE (NEGATIVE); URINE PROTEIN NEGATIVE (NEGATIVE); URINE RBC 18 /uL (0-23.9); URINE UROBILINOGEN 0.2 mg/dL (0.2-1.0); URINE WBC 12 /uL (0-25.8)
[2023-01-26 18:27] LABS: THROAT:GRP A STREP DETECTED (NOTDETECTED)
[2023-01-26] MEDS ORDERED: AMOXICILLIN 500 MG CAPSULE (FP) PO ONE (18:55)
[2023-01-26] MEDS ORDERED: AMOXICILLIN 500 MG CAPSULE (FP) ONE (19:06)
[2023-01-26 19:15] VITALS: PULSE 90
== END 2023-01-26 19:16 | disposition home or self-care (01) ==
LOC: JER 16:46
DX: J02.0 Streptococcal pharyngitis (principal); Z20.822 Contact with and (suspected) exposure to COVID-19
CPT/HCPCS: 0241U-QW; 81003; 87070; 87086; 87651; 99283-25

== ENCOUNTER 2023-06-16 20:48 | Emergency (ER) | payer OTHER ==
[2023-06-16 21:00] VITALS: BP 117/75; PULSE 73; RESP 19; TEMP 98.3; BMI 30.1
== END 2023-06-16 22:47 | disposition left against medical advice (07) ==
LOC: JER 20:48
DX: R07.9 Chest pain, unspecified (principal)
CPT/HCPCS: 93005; 93010; 99281-25

== ENCOUNTER 2023-12-06 14:59 | Emergency (ER) | payer OTHER ==
[2023-12-06 16:41] VITALS: BP 112/73; PULSE 90; RESP 18; TEMP 98.3; BMI 30.4
[2023-12-06] MEDS ORDERED: METOCLOPRAMIDE HCL INJECTION 10 MG/2 ML VIAL IVPB ONE (17:52)
[2023-12-06] MEDS ORDERED: ACETAMINOPHEN 1000 MG/100 ML BAG IVPB ONE (17:52)
[2023-12-06] MEDS ORDERED: SODIUM CHLORIDE 0.9% 500 ML INFUS.BAG IV ONE (17:52)
[2023-12-06] MEDS ORDERED: ACETAMINOPHEN INJECTION 100 ML IVPB ONE (18:05)
[2023-12-06] MEDS ORDERED: METOCLOPRAMIDE HCL INJECTION 10 MG/2 ML VIAL ONE (18:05)
[2023-12-06 18:28] LABS: BASO % 0.9 % (0-2.0); EOS % 3.9 % (0-4.5); HEMATOCRIT 39.8 % (32.4-45.2); HEMOGLOBIN 12.9 GM/dL (10.7-15.3); MCH 26.3 pg (25.7-33.7); MCHC 32.4 g/dl (32.0-36.0); MEAN CELL VOLUME 81.2 fl (80-96); MEAN PLT VOLUME 8.4 fl (7.5-11.1); MONO % 6.8 % (3.8-10.2); NEUT % 60.4 % (42.8-82.8); PLATELET COUNT 269 10^3/uL (134-434); RBC 4.91 M/mm3 (3.60-5.2); RDW 14.6 % (11.6-15.6); WHITE BLOOD COUNT 8.8 K/mm3 (4.0-10.0)
[2023-12-06 18:43] LABS: CHLORIDE 106 mmol/L (98-107); POTASSIUM 3.8 mmol/L (3.5-5.1); SODIUM 140 mmol/L (136-145)
[2023-12-06 18:45] LABS: CALCIUM 9.1 mg/dL (8.5-10.1)
[2023-12-06 18:46] LABS: ALBUMIN 3.4 g/dl (3.4-5.0); ANION GAP 6 mmol/L (4-13); BLOOD UREA NITROGEN 10.9 mg/dL (7-18); CO2 27 mmol/L (21-32); GLUCOSE,RANDOM 112 mg/dL (74-106)
[2023-12-06 18:49] LABS: CREATININE 0.6 mg/dL (0.55-1.3); SGOT/AST 15 U/L (15-37); SGPT/ALT 17 U/L (13-61)
[2023-12-06 18:51] LABS: BILIRUBIN,TOTAL < 0.1 mg/dL (0.2-1)
[2023-12-06 18:52] LABS: ALK PHOS 64 U/L (45-117)
[2023-12-06] MEDS ORDERED: KETOROLAC TROMETHAMINE 15 MG/ML VIAL IVPUSH ONE (19:16)
[2023-12-06] MEDS ORDERED: KETOROLAC TROMETHAMINE 15 MG/ML VIAL ONE (20:41)
== END 2023-12-06 22:24 | disposition home or self-care (01) ==
LOC: JER 14:59
PROC: 3E033GC Introduction of Other Therapeutic Substance into Peripheral Vein, Percutaneous Approach (ICD-10-PCS; principal; 2023-12-06)
PROC: 3E0333Z Introduction of Anti-inflammatory into Peripheral Vein, Percutaneous Approach (ICD-10-PCS; 2023-12-06)
PROC: 3E033GC Introduction of Other Therapeutic Substance into Peripheral Vein, Percutaneous Approach (ICD-10-PCS; 2023-12-06)
DX: R51.9 Headache, unspecified (principal); R20.2 Paresthesia of skin; R53.1 Weakness; Z20.822 Contact with and (suspected) exposure to COVID-19
CPT/HCPCS: 0241U-QW; 36415; 70544-TC; 70551-TC; 80053; 84703; 85025; 99284-25

== ENCOUNTER 2024-10-05 05:22 | Day surgery (SDC) | payer OTHER ==
[2024-10-01 16:15] VITALS: BMI 32.2
[2024-10-05] MEDS: LORATADINE 10 MG TABLET PO ONE (09:31)
[2024-10-05] MEDS ORDERED: PROPOFOL 20 ML ONE ×2 (11:31→12:53)
[2024-10-05] MEDS ORDERED: MIDAZOLAM HCL 2 MG/2 ML SINGLE DOSE VIAL ONE (11:31)
[2024-10-05] MEDS ORDERED: ROCURONIUM BROMIDE 50 MG/5 ML SYRINGE ONE ×2 (11:32→12:33)
[2024-10-05] MEDS: ceFAZolin SODIUM 1 GM VIAL IVPB ONE (11:50)
[2024-10-05] MEDS ORDERED: LIDOCAINE HCL/PF 2% SDV 5ML VIAL ONE (11:53)
[2024-10-05] MEDS ORDERED: ONDANSETRON 4 MG/2 ML VIAL IVPUSH PRN (12:13)
[2024-10-05] MEDS ORDERED: NEOSTIGMINE METHYLSULFATE 0.5 MG/1 ML - 10 ML MDV ONE (12:35)
[2024-10-05] MEDS ORDERED: ACETAMINOPHEN INJECTION 100 ML ONE (13:05)
[2024-10-05] MEDS: LACTATED RINGERS SOLUTION 1,000 ML IV SCH (13:22)
[2024-10-05 15:05] VITALS: RESP 18
[2024-10-05] MEDS ORDERED: oxyCODONE HCL 5 MG TABLET PO ONE (16:05)
[2024-10-05] MEDS ORDERED: oxyCODONE HCL 5 MG TABLET ONE (16:21)
[2024-10-05] MEDS: oxyCODONE HCL 5 MG TABLET PO PRN (16:25)
[2024-10-05 17:38] VITALS: BP 103/61; PULSE 73; TEMP 98.6
== END 2024-10-05 17:47 | disposition home or self-care (01) ==
LOC: JASU-SURG 05:22
PROVIDERS: ATTEND Obstetrics & Gynecology
PROC: 8E0W4CZ Robotic Assisted Procedure of Trunk Region, Percutaneous Endoscopic Approach (ICD-10-PCS; 2024-10-05)
PROC: 0JQC0ZZ Repair Pelvic Region Subcutaneous Tissue and Fascia, Open Approach (ICD-10-PCS; 2024-10-05)
PROC: 0UB04ZZ Excision of Right Ovary, Percutaneous Endoscopic Approach (ICD-10-PCS; principal; 2024-10-05 10:00)
DX: N80.9 Endometriosis, unspecified (principal); N83.201 Unspecified ovarian cyst, right side; N81.6 Rectocele
CPT/HCPCS: 81025; 88302-TC; 88305-TC; 94760; J0131

== ENCOUNTER 2025-08-17 08:32 | Emergency (ER) | payer OTHER ==
[2025-08-17 08:39] VITALS: BP 120/78; PULSE 96; RESP 20; TEMP 99.6; BMI 29.2
[2025-08-17] MEDS: HYDROCORTISONE 2.5% TOPICAL CREAM 30 GM TUBE PR ONE (11:37)
== END 2025-08-17 15:09 | disposition home or self-care (01) ==
LOC: JER 08:32
PROC: 06BY0ZC Excision of Hemorrhoidal Plexus, Open Approach (ICD-10-PCS; principal; 2025-08-17)
DX: K64.5 Perianal venous thrombosis (principal); K59.00 Constipation, unspecified
CPT/HCPCS: 46320; 99283-25